=== PATIENT | female | born 1965 | race Caucasian/White ===

== ENCOUNTER → 2022-02-18 | Day surgery (SDC) | payer MEDICAID ==
[~2022-02-18] VITALS: Ht 142.2 cm; Wt 74.7 kg
[~2022-02-18] MED LIST: ACET-1059 PO; ACET-3068 PO; ALBU90AE INH; BACL20TA11 PO; BUPR300T53 PO; DIPH25CA83 PO; FERR325T28 PO; FLUTICASONE; GABA600T13 PO; GUAI1CAP96 PO; IBUP-1985 PO; LEVO25TA2 PO; LIDOcaine 1% (10mg/ml)w/preservative inj. 20ml MDV ONE; LORA10TA65 PO; OMEP40CA21 PO; PANT-47 PO; fentaNYL/PF 50MCG/1 ML 2ML syringe ONE; heparin sodium, porcine/PF 100unit/ml 5ML syringe ONE; midazolam 1 mg/ML 2ml injection ONE; normal saline 1000ml 1,000 ML IV PRN
[2022-02-18 14:30] VITALS: BP 88/57
[2022-02-18 14:45] VITALS: BP 113/43
[2022-02-18 15:00] VITALS: BP 110/47
[2022-02-18 15:15] VITALS: BP 87/49
== END | disposition home or self-care (01) ==
LOC: SSTAY O 11:00
PROVIDERS: ATTEND Radiology Vascular & Interventional Radiology
DX: C34.90 Malignant neoplasm of unspecified part of unspecified bronchus or lung (principal); Z79.899 Other long term (current) drug therapy; Z82.61 Family history of arthritis; Z82.3 Family history of stroke; Z82.49 Family history of ischemic heart disease and other diseases of the circulatory system
CPT/HCPCS: 36561; 76937; 77001; 99152; 99153; C1769; C1788; C1894; J1642; J2250; J3010; J3490

== ENCOUNTER 2022-04-18 16:25 | Emergency (ER) | payer MEDICAID ==
[~2022-04-18] VITALS: Ht 142.2 cm; Wt 73.2 kg
[~2022-04-18 16:25] MED LIST changes: -BUPR300T53 PO; -LIDOcaine 1% (10mg/ml)w/preservative inj. 20ml MDV ONE; -PANT-47 PO; -fentaNYL/PF 50MCG/1 ML 2ML syringe ONE; -heparin sodium, porcine/PF 100unit/ml 5ML syringe ONE; -midazolam 1 mg/ML 2ml injection ONE; -normal saline 1000ml 1,000 ML IV PRN
[2022-04-18] MEDS ORDERED: glucagon, human recombinant 1mg kit IM ONE (20:10)
[2022-04-18] MEDS ORDERED: PANT-47 PO (21:24)
[2022-04-18 21:40] VITALS: BP 125/64
[2022-04-18] MEDS ORDERED: MIDAZolam 1 MG/ML 5ML VIAL ONE (21:43)
[2022-04-18] MEDS ORDERED: fentaNYL/PF 50MCG/1 ML 2ML syringe ONE (21:43)
[2022-04-18] MEDS ORDERED: LIDOcaine Viscous 15ml cup ONE (21:44)
--- NOTE | 2022-04-18 21:48 | NUR ---
PATIENT TAKEN TO GO LAB PER JAROD.
[2022-04-18 21:59] VITALS: BP 126/75
[2022-04-18 22:09] VITALS: BP 122/68
[2022-04-18 22:19] VITALS: BP 120/82
--- NOTE | 2022-04-18 22:56 | NUR ---
PATIENT IS AWAKE AND ORIENTED, BUT DROWSY. READY FOR DC. TC TO , [facility], FOR TRANSPORTATION HOME. IS ON HIS WAY.
[2022-04-18 22:57] VITALS: BP 106/37
== END 2022-04-18 23:12 | disposition home or self-care (01) ==
LOC: ER 16:25
DX: T18.2XXA Foreign body in stomach, initial encounter (principal); Z79.899 Other long term (current) drug therapy; X58.XXXA Exposure to other specified factors, initial encounter; Y93.89 Activity, other specified; Y92.89 Other specified places as the place of occurrence of the external cause; Y99.8 Other external cause status
CPT/HCPCS: 43239; 43247; 71045; 96372; 99152; 99285; C1769; J1610; J2250; J3010; J7030; Z7512; A4620